=== PATIENT | male | born 1950 | race Caucasian/White ===

== ENCOUNTER 2018-06-26 07:15 | Emergency (ER) | payer OTHER ==
[~2018-06-26] VITALS: Ht 185.4 cm; Wt 99.8 kg
[2018-06-26] MEDS: HYDROcodone-ACET 10/325MG TAB PO ONE (09:14)
[2018-06-26 10:00] VITALS: BP 132/63
== END 2018-06-26 09:25 | disposition home or self-care (01) ==
LOC: EDBD 07:15 → ER 07:15
DX: S82.831A Other fracture of upper and lower end of right fibula, initial encounter for closed fracture (principal); R07.9 Chest pain, unspecified; R51 Headache; F17.210 Nicotine dependence, cigarettes, uncomplicated; Z90.49 Acquired absence of other specified parts of digestive tract; V49.49XA Driver injured in collision with other motor vehicles in traffic accident, initial encounter; Y93.89 Activity, other specified; Y92.89 Other specified places as the place of occurrence of the external cause; Y99.8 Other external cause status
CPT/HCPCS: 29505; 70450; 71250; 73590; 74176; 93005

== ENCOUNTER 2023-11-12 17:03 | Emergency (ER) | payer OTHER ==
[~2023-11-12] VITALS: Ht 177.8 cm; Wt 75.0 kg
[2023-11-12 18:51] LABS: Basophils # (auto) 0 10 ^3/uL (0-0.2); Basophils % (auto) 0.2 % (0.0-2.0); Eosinophils # (auto) 0.1 10 ^3/uL (0-0.8); Eosinophils % (auto) 0.4 % (0.0-7.0); Hematocrit 43.8 % (41.0-53.0); Hemoglobin 14.8 g/dL (13.5-17.5); Lymphocytes # (auto) 1.5 10 ^3/uL (0.4-5.4); Lymphocytes % (auto) 9.9 % (10.0-50.0); Mean Corpuscular Hgb Conc. 33.9 g/dL (32.0-36.0); Mean Corpuscular Volume 91.7 fL (80.0-100.0); Monocytes # (auto) 1.8 10 ^3/uL (0-1.3); Monocytes % (auto) 12.5 % (0.0-12.0); Neutrophils # (auto) 11.4 10 ^3/uL (1.6-8.6); Platelet Count (auto) 422 10^3/uL (140-450); Red Blood Cells 4.77 10^6/uL (4.5-5.90); Red Cell Distribution Width 13.1 % (11.8-14.3); White Blood Cell 14.8 10^3/uL (4.4-10.8)
[2023-11-12 19:01] LABS: Urine Bacteria FEW /hpf (None Seen); Urine Blood 1+ /uL (Negative); Urine Clarity Clear (Clear); Urine Color Yellow (Yellow); Urine Protein, UAD Negative (Negative); Urine Specific Gravity 1.017 (1.001-1.035); Urine Urobilinogen Normal (Negative); Urine WBC 7 /hpf (0 - 3); Urine pH 5.5 (5.0-9.0)
[2023-11-12 19:14] LABS: Alanine Aminotransferase 39 U/L (7-40); Albumin 4.2 g/dL (3.2-4.8); Alkaline Phosphatase 95 U/L (46-116); Anion Gap 10 (5-15); Aspartate Aminotransferase 34 U/L (13-40); BUN/Creatinine Ratio 13.9 (10.0-20.0); Blood Urea Nitrogen 42 mg/dL (9-23); Calcium 9.5 mg/dL (8.7-10.4); Carbon Dioxide 21 mmol/L (20-30); Chloride 100 mmol/L (98-107); Glucose 116 mg/dL (74-106); Potassium 3.7 mmol/L (3.5-5.1); Sodium 131 mmol/L (136-145)
[2023-11-12 19:15] LABS: Bilirubin, Total 2.7 mg/dL (0.2-1.0)
[2023-11-12] MEDS: cefTRIAXone 1GM/50ML D5W 50 ML IV ONE (21:06)
[2023-11-12] MEDS: ACETAMINOPHEN 325 MG TAB PO ONE (21:06)
[2023-11-12] MEDS: SODIUM CHLORIDE 0.9% 1,000 ML IV ONE ×2 (21:07→23:31)
[2023-11-12 21:24] VITALS: PULSE 95; RESP 20; O2SAT 95
[2023-11-13 00:35] VITALS: BP 126/61; PULSE 80; RESP 16; TEMP 97.8; O2SAT 96
== END 2023-11-13 01:03 | disposition short-term general hospital (02) ==
LOC: ER 17:03
DX: N39.0 Urinary tract infection, site not specified (principal); D72.829 Elevated white blood cell count, unspecified; R33.9 Retention of urine, unspecified; N28.9 Disorder of kidney and ureter, unspecified
CPT/HCPCS: 36415; 51702; 74176; 80053; 81001; 83605; 85025; 96361; 96365; 99285; J0696; J7030